=== PATIENT | male | born 1975 | race Caucasian/White ===

== ENCOUNTER 2023-06-20 09:31 | Outpatient (CLI) | payer OTHER, SELFPAY | END 2023-06-20 09:32 | disposition home or self-care (01) | LOC: NFLDREF 06-21 11:33 | PROVIDERS: PCP Family Medicine; Referring Provider Family Medicine; Visit Provider Family Medicine | DX: Z00.00 Encounter for general adult medical examination without abnormal findings (principal); Z01.818 Encounter for other preprocedural examination | CPT/HCPCS: 80053; 80061; 84153 ==

== ENCOUNTER 2024-10-28 08:39 | Outpatient (CLI) | payer OTHER, SELFPAY | END 2024-10-28 08:40 | disposition home or self-care (01) | PROVIDERS: PCP Family Medicine; Visit Provider Family Medicine | DX: R10.9 Unspecified abdominal pain (principal); R11.0 Nausea; Z12.5 Encounter for screening for malignant neoplasm of prostate | CPT/HCPCS: 80061; 80076; G0103 ==

== ENCOUNTER 2024-11-12 07:25 | Outpatient (CLI) | payer OTHER, SELFPAY ==
--- NOTE | 2024-11-12 08:00 | CRLHL7_ITS ---
For Patients: As a result of the 21st Century Cures Act, medical imaging exams and procedure reports are released immediately into your electronic medical record. You may view this report before your referring provider. If you have questions, please contact your health care provider. INDICATION: Left lower quadrant pain. Umbilical hernia. TECHNIQUE: Volumetric helical scanning of the abdomen and pelvis was performed with 133 cc of Isovue 370 contrast material IV. Coronal and sagittal reconstructions were obtained. COMPARISON: None FINDINGS: There is no evidence of bowel obstruction or inflammation. A normal appendix is noted. There appears to be mild fatty change in the liver. The bile ducts are within normal limits. The spleen is mildly enlarged. The adrenal glands and pancreas are negative. The kidneys are unremarkable except for a 2 cm right renal parenchymal cyst. No lymphadenopathy is evident. No free fluid is demonstrated. The prostate is unremarkable. A small fat-containing umbilical hernia is demonstrated. The lung bases are essentially clear, and heart size is normal. A noncalcified 3 mm right middle lobe nodule is demonstrated on image 5 of series 2. IMPRESSION: 1. Etiology of left lower quadrant pain not evident. 2. Mild fatty change in liver. 3. Mild splenomegaly. 4. Noncalcified 3 mm right middle lobe nodule. In accordance with Fleischner Society Guidelines (see below), if the patient is low risk for lung cancer, no additional evaluation is necessary. If he has a smoking history or is otherwise at high risk for lung cancer, a [address] is recommended. FLEISCHNER SOCIETY GUIDELINES: LOW RISK: - nodule less than 6 mm: No follow-up needed. - nodule 6-8 mm: Initial follow-up CT at 6-12 months and then at 18-24 months if no change. - nodule greater than 8 mm: Follow-up CTs at around 3, 9, and 24 months. Dynamic contrast-enhanced CT, PET, and/or biopsy. MULTIPLE LOW RISK: - nodule less than 6 mm: No follow-up needed. - nodule 6-8 mm: CT at 3-6 months, then consider CT at 18-24 months. - nodule greater than 8 mm: CT at 3-6 months, then consider CT at 18-24 months. HIGH RISK: - nodule less than 6 mm: Follow-up at 12 months. If no change, no further imaging needed. - nodule 6-8 mm: Initial follow-up CT at 3-6 months and then at 9-12 and 24 months if no change. - nodule greater than 8 mm: Follow-up CTs at around 3, 9, and 24 months. Dynamic contrast-enhanced CT, PET, and/or biopsy. MULTIPLE HIGH RISK: - nodule less than 6 mm: Optional CT at 12 months. - nodule 6-8 mm: CT at 3-6 months, then at 18-24 months. - nodule greater than 8 mm: CT at 3-6 months, then at 18-24 months. HIGH RISK is defined as one or more of the following: - at least 20 pack-year smoking history or equivalent second-hand exposure. - personal history of cancer or family history of lung cancer. - occupational exposure (asbestos, beryllium, silica, uranium, radon) - chronic interstitial/fibrotic lung disease. Please note that all CT scans at this facility use dose modulation, iterative reconstruction, and/or weight-based dosing when appropriate to reduce radiation dose to as low as reasonably achievable. Dictated by Hi Hernandez MD @ 11/13/2024 7:56:19 AM (Electronically Signed)
== END 2024-11-12 07:26 | disposition home or self-care (01) ==
LOC: CT 07:25
PROVIDERS: PCP Family Medicine; Visit Provider Surgery
DX: R10.32 Left lower quadrant pain (principal); K76.0 Fatty (change of) liver, not elsewhere classified; R16.1 Splenomegaly, not elsewhere classified; R91.8 Other nonspecific abnormal finding of lung field; K42.9 Umbilical hernia without obstruction or gangrene
CPT/HCPCS: 74177; Q9967